=== PATIENT | female | born 1995 | race Caucasian/White ===

== ENCOUNTER → 2017-12-30 | Outpatient (CLI) | payer OTHER ==
[~2017-12-30] MED LIST: AZIT-21 PO; BARIUM SUSPENSION 105% (LIQUID POLIBAR PLUS) 240 ML/DOSE PO ONE; BARIUM SUSPENSION 60% (LIQUID EZ PAQUE) 240 ML DOSE PO ONE; HYDR-3583 PO; SULF1TAB38 PO
--- NOTE | 2017-12-30 11:18 | Diagnostic Imaging Report ---
Indication: Nausea. Findings: The patient ingested effervescent crystals as well as thin and thick barium and imaging of the esophagus, stomach and proximal small bowel was performed. Total of 1 minute and 35 seconds of fluoroscopy was utilized. Preliminary radiograph is unremarkable. The esophagus has a smooth contour. No mass or stricture is identified. No hiatal hernia or gastroesophageal reflux is demonstrated. The stomach is normal in configuration. No mass or ulceration is identified. The duodenal bulb is without deformity. The proximal small bowel loops are unremarkable. Impression: Unremarkable upper GI. Dictated by: Dictated on workstation # [id number]
== END ==
LOC: RAD 08:56
PROVIDERS: ATTEND Family Medicine
DX: R11.0 Nausea (principal)
CPT/HCPCS: 74241